=== PATIENT | female | born 1980 ===

== ENCOUNTER 2024-05-30 10:15 | Inpatient (IN) | payer OTHER ==
[~2024-05-30] VITALS: Ht 297.2 cm; Wt 63.5 kg
[2024-05-30 11:38] VITALS: BP 100/61; BP 111/68
[2024-05-30] MEDS ORDERED: SYNTHROID75 MCG PO (11:41)
[2024-06-03] MEDS ORDERED: CEFAZOLIN SODIUM 1,000 MG VIAL IV ONE (20:45)
[2024-06-03] MEDS ORDERED: MEPERIDINE HCL/PF 50 MG/ML VIAL IV SCH (23:45)
[2024-06-03] MEDS ORDERED: PROMETHAZINE HCL 25 MG/ML AMPUL IV SCH (23:45)
[2024-06-03] MEDS ORDERED: KETOROLAC TROMETHAMINE 60 MG VIAL IM ONE (23:45)
[2024-06-04] MEDS ORDERED: MORPHINE SULFATE 4 MG/ML VIAL IV ONE ×2 (00:05→01:05)
[2024-06-04 02:19] VITALS: BP 100/61
[2024-06-04] MEDS ORDERED: IBUprofen 800 MG TABLET PO SCH ×2 (07:00→10:51)
[2024-06-04 07:12] LABS: HEMATOCRIT 32.3 % (36.0-45.00); HEMOGLOBIN 10.7 g/dL (12.0-15.00); MEAN CELL VOLUME 85.1 fL (80.00-100.00); MEAN CORPUSCULAR HEMOGLOBIN 28.2 pg (27.00-32.0); MEAN CORPUSCULAR HGB CONC 33.1 g/dl (32.0-36.0); PLATELET COUNT 195 K/uL (150-450); RED BLOOD COUNT 3.79 M/uL (4.00-6.00)
[2024-06-04] MEDS ORDERED: DOCUSATE CALCIUM 240 MG CAPSULE PO SCH (09:00)
[2024-06-04] MEDS ORDERED: SIMETHICONE 125 MG CAPSULE PO SCH (09:00)
[2024-06-04 09:52] VITALS: BP 107/69
[2024-06-04 16:04] VITALS: BP 96/60
[2024-06-04 20:54] VITALS: BP 111/71
[2024-06-05 01:03] VITALS: BP 96/58
[2024-06-05] MEDS ORDERED: IBU800 MG PO (07:46)
[2024-06-05] MEDS ORDERED: SURFAK240 M1 PO (07:47)
[2024-06-05] MEDS ORDERED: SIMETHICONE125 M1 PO (07:47)
[2024-06-05] MEDS ORDERED: HIBICLENS118 ML TOP (07:50)
[2024-06-05 08:46] VITALS: BP 107/71
== END 2024-06-05 13:01 | disposition home or self-care (01) | DRG 743 ==
LOC: SURH 06-03 07:00 → O/R 06-03 14:57 → OB/GYN 06-03 23:35
PROVIDERS: ADMIT Specialist; ATTEND Specialist
PROC: 0UT70ZZ Resection of Bilateral Fallopian Tubes, Open Approach (ICD-10-PCS; 2024-06-03)
PROC: 0UB90ZZ Excision of Uterus, Open Approach (ICD-10-PCS; principal; 2024-06-03 07:00)
DX: D25.0 Submucous leiomyoma of uterus (principal); Z20.822 Contact with and (suspected) exposure to COVID-19